=== PATIENT | male | born 1990 | race Caucasian/White ===

== ENCOUNTER 2018-02-26 20:19 | Emergency (ER) | payer SELFPAY ==
[2018-02-26] MEDS ORDERED: PHARMACY KEY 1 EACH EACH MC ONE (20:42)
[2018-02-26] MEDS ORDERED: PENICILLIN G BENZATHINE 1,200,000 UNITS INJ IM ONE (20:48)
--- NOTE | 2018-02-26 20:51 | ED Physician Documentation ---
Sore Throat/Dental Pain - HISTORIAN Historian: patient - HPI Stated Complaint: ST, TRUJ[place], FEVER Chief Complaint: Sore Throat Further Comments: yes (27 year old male patient presents with complaint of sore throat, head ache and fever. C/O pain with swallowing; took tylenol this morning , "slept all day".) - ROS CONST: no problems CVS/RESP: none GI/: denies: problems urinating, nausea, vomiting, other MS/SKIN/LYMPH: denies: muscle aches, rash, leg swelling, ankle swelling, other NEURO/PSYCH: none - PAST HX Past History: none Other History: none Allergies/Adverse Reactions: Allergies Allergy/AdvReac Type Severity Reaction Status Date / Time No Known Allergies Allergy Verified 02/26/18 20:48 Home Medications: Ambulatory Orders Medication Instructions Recorded NK [NK] 02/26/18 - SOCIAL HX Smoking History: cigarettes - FAMILY HX Family History: No - VITAL SIGNS Vital Signs: Vital Signs Temp Pulse Resp BP Pulse Ox 99.5 F 86 18 128/81 98 02/26/18 21:00 02/26/18 21:00 02/26/18 21:00 02/26/18 21:00 02/26/18 21:00 - REVIEWED ASSESSMENTS Nursing Assessment Reviewed: Yes Vitals Reviewed: Yes Progress - Progress Progress: Treatment options discussed, offered po antibiotics or IM bicillin. patient medicated with Bicillin IM in ER. ED Results Lab/Radiology - Lab Results Lab Results: Lab Results 02/26/18 20:35 Group A Strep Screen Positive H (NEGATIVE) - Orders Orders: ED Orders Category Date Time Status Rapid Strep [GRP A STREP SCREEN] Stat Lab 02/26/18 20:35 Completed Penicillin G Benzathine [Bicillin l-A] Med 02/26/18 20:48 Discontinued 1,200,000 units IM NOW ONE [facility] 02/26/18 20:42 Discontinued 1 each [facility] .STK-MED ONE Sore throat Physical Exam - EXAM General Appearance: mild distress Head/Neck: head nml inspection, trachea midline, no lymphadenopathy, thyroid nml , neck nml inspection Eyes: eyes nml inspection, PERRL Mouth/Throat: lips nml, gums nml, voice nml, no drooling, no air way problems, no thrush, membranes nml, pharyngeal erythema, tonsillar exudate Respiratory: no resp. distress, breath sounds nml CVS: reg. rate & rhythm, heart sounds nml Abdomen: soft, no organomegaly, normal bowel sounds, no abdominal bruit, no distension Skin: normal color, warm/dry, NR, INT, PAL, DR Neuro/Psych: oriented x3, mood/affect nml Discharge Clincal Impression: Strep pharyngitis Additional Instructions: Chloraseptic spray or lozenges as needed for throat pain. Warm salt water gargles as needed pain Increase your fluid intake juices, hot tea, non-caffeinated beverages If you are congested - You may want to try Vicks rub on your chest and/or feet Use a humidifier in the room where you sleep. You can also sit in a steam filled bathroom 1-2 times a day. Tylenol or Ibuprofen as needed for fever, pain and body aches. Condition: Stable Disposition: 01 HOME, SELF-CARE Decision to Admit: NO Decision Time: 20:45
[2018-02-26 21:10] VITALS: BP 128/81
== END 2018-02-26 21:00 | disposition home or self-care (01) ==
LOC: ED 20:19
DX: J02.0 Streptococcal pharyngitis (principal)
CPT/HCPCS: 87880; 96372; 99283; J0561